=== PATIENT | female | born 1955 | race African-American/Black ===

== ENCOUNTER 2017-07-09 16:27 | Emergency (ER) | payer OTHER ==
[2017-07-09 16:43] VITALS: TEMP 98.5; BMI 35.5
--- NOTE | 2017-07-09 16:45 | PDOC ---
Rapid Medical Evaluation Time Seen by Provider: 07/09/17 16:40 Medical Evaluation: 07/09/17 16:40 I have performed a brief in-person evaluation of this patient. The patient presents with a chief complaint of: chest discomfort since yesterday with palpitations and weakness in lower leg. Denies dizziness. Pertinent physical exam findings: NAD lungs clear bilaterally heart [id number] I have ordered the following: ekg, labs ordered The patient will proceed to the ED for further evaluation. Discharge Disposition - Referrals Referrals: Chao Anthony MD [Primary Care Provider] - - Patient Instructions - Post Discharge Activity
[2017-07-09 17:14] LABS: BASO % 0.9 % (0-2.0); EOS % 3.7 % (0-4.5); HEMATOCRIT 43.2 % (32.4-45.2); HEMOGLOBIN 14.3 GM/dL (10.7-15.3); LYMPH % 54.3 % (8-40); MCH 28.3 pg (25.7-33.7); MEAN CELL VOLUME 85.9 fl (80-96); MEAN PLT VOLUME 10.2 fl (7.5-11.1); MONO % 7.1 % (3.8-10.2); PLATELET COUNT 302 K/MM3 (134-434); RBC 5.03 M/mm3 (3.60-5.2); RDW 14.3 % (11.6-15.6); WHITE BLOOD COUNT 11.5 K/mm3 (4.0-10.0)
[2017-07-09 17:19] LABS: INR 1.07 (0.82-1.09); PROTHROMBIN TIME (PATIENT) 12.1 SEC (9.7-13.0)
[2017-07-09 17:45] LABS: ALBUMIN 3.8 g/dl (3.4-5.0); ANION GAP 9 (8-16); BILIRUBIN,TOTAL 0.8 mg/dL (0.2-1.0); BLOOD UREA NITROGEN 10 mg/dL (7-18); CALCIUM 8.8 mg/dL (8.5-10.1); CHLORIDE 101 mmol/L (98-107); CO2 30 mmol/L (21-32); CREATININE 1.1 mg/dL (0.55-1.02); GLUCOSE,RANDOM 95 mg/dL (74-106); SGOT/AST 23 U/L (15-37); SGPT/ALT 52 U/L (12-78); SODIUM 140 mmol/L (136-145); TOT PROT 7.8 g/dl (6.4-8.2)
[2017-07-09 17:48] LABS: ALK PHOS 57 U/L (45-117)
[2017-07-09 17:49] LABS: POTASSIUM 2.9 mmol/L (3.5-5.1)
[2017-07-09] MEDS ORDERED: POTASSIUM CHLORIDE TABS 20 MEQ TABLET.ER (FP) PO ONE ×3 (17:51→18:04)
[2017-07-09] MEDS ORDERED: KCL 10 MEQ IVPB 10 MEQ/100 ML INFUS.BAG IVPB ONE (17:51)
[2017-07-09] MEDS ORDERED: SODIUM CHLORIDE 0.9% 1000 ML INFUS.BAG IV ONE (17:55)
[2017-07-09] MEDS ORDERED: KCL 10 MEQ IVPB 10 MEQ/100 ML INFUS.BAG IVPB SCH (18:00)
--- NOTE | 2017-07-09 18:03 | PDOC ---
History of Present Illness - General History Source: Patient Exam Limitations: No Limitations - History of Present Illness Initial Comments: 07/09/17 18:46 The patient is a 62 year old female with a significant past medical history of hypertension who presents to the emergency department for evaluation of palpitations. The patient reports episodes of palpitations since Saturday. The patient reports walking a few yards from her home and felt her heart palpitating with associated leg soreness on Saturday. She reports associated symptoms of dyspnea on exertion, chest discomfort, and body soreness. She states "my soreness feels like I have been to the gym a lot". Of note, the patient is currently taking nifedipine and hydrochlorothiazide. The patient denies abdominal pain, changes in vision, headache, and dizziness. Denies fevers, chills, nausea, vomiting, diarrhea, and constipation. Denies dysuria, frequency, urgency, and hematuria. Allergies: NKA Social history: Former smoker. No reported alcohol or drug use. PCP: Dr. Anthony ([phone]) <Evelio Marshall - Last Filed: 07/09/17 18:47> <Nawaf De La Rosa - Last Filed: 07/09/17 19:48> - General Chief Complaint: Palpitations Stated Complaint: HEART PALPITATIONS Time Seen by Provider: 07/09/17 16:40 Past History <Evelio Marshall - Last Filed: 07/09/17 18:47> - Suicide/Smoking/Psychosocial Hx Smoking History: Former smoker Have you smoked in the past 12 months: No Information on smoking cessation initiated: No <Nawaf De La Rosa - Last Filed: 07/09/17 19:48> - Past Medical History Allergies/Adverse Reactions: Allergies Allergy/AdvReac Type Severity Reaction Status Date / Time No Known Allergies Allergy Verified 07/09/17 16:41 Home Medications: Ambulatory Orders Unobtainable [Unobtainable] 07/09/17 Review of Systems - Review of Systems Able to Perform ROS?: Yes Comments:: A complete review of 10 out of 10 review of systems is taken and is negative apart from what is previously mentioned below and in the HPI. <Evelio Marshall - Last Filed: 07/09/17 18:47> *Physical Exam - Vital Signs Last Vital Signs Temp Pulse Resp BP Pulse Ox 98.5 F 89 15 118/86 99 07/09/17 16:41 07/09/17 16:41 07/09/17 16:41 07/09/17 16:41 07/09/17 16:41 - Physical Exam Comments: Vitals: Triage Vital signs reviewed General Appearance: no acute distress, well nourished well developed, Head: Atraumatic, normocephalic Eyes: Pupils equal reactive round, extraocular movement intact Nose: Nares patent bilaterally Neck: Supple;No Nuchal rigidity Chest Wall: Nontender Cardiac: Regular rate and rhythm, no murmurs, no rubs, no gallops, Lungs: Clear to auscultation bilateral, good air movement bilaterally, Abdomen: Soft, nondistended, normal bowel sounds, nontender to palpation Rectal: Exam deferred Extremities: Full range of motion to all extremities, no cyanosis, clubbing, or edema Skin: Warm and dry, no rashes or lesions, no petechiae Psych: normal mood, normal affect <Evelio Marshall - Last Filed: 07/09/17 18:47> - Vital Signs Last Vital Signs Temp Pulse Resp BP Pulse Ox 98.5 F 89 15 118/86 99 07/09/17 16:41 07/09/17 16:41 07/09/17 16:41 07/09/17 16:41 07/09/17 16:41 <Nawaf De La Rosa - Last Filed: 07/09/17 19:48> Heart Score/ECG Review - ECG Impressions Comment:: 07/09/17 18:40 EKG performed at 1640.Normal sinus rhythm no ST elevations or T-wave inversions <Nawaf De La Rosa - Last Filed: 07/09/17 19:48> ED Treatment Course - LABORATORY CBC & Chemistry Diagram: 07/09/17 16:51 07/09/17 16:51 - ADDITIONAL ORDERS Additional order review: Laboratory Results 07/09/17 07/09/17 16:51 16:51 PT with INR 12.10 INR 1.07 PTT (Actin FS) 28.0 Sodium 140 Potassium 2.9 L* Chloride 101 Carbon Dioxide 30 Anion Gap 9 BUN 10 Creatinine 1.1 H Creat Clearance w eGFR 50.50 Random Glucose 95 Calcium 8.8 Total Bilirubin 0.8 AST 23 ALT 52 Alkaline Phosphatase 57 Troponin I 0.03 Total Protein 7.8 Albumin 3.8 07/09/17 16:51 RBC 5.03 MCV 85.9 MCHC 33.0 RDW 14.3 MPV 10.2 Neutrophils % 34.0 L Lymphocytes % 54.3 H Monocytes % 7.1 Eosinophils % 3.7 Basophils % 0.9 - Medications Given in the ED: ED Medications Discontinued Medications Generic Name Dose Route Start Last Admin Trade Name Shivani PRN Reason Stop Dose Admin Potassium Chloride 80 meq 07/09/17 17:55 07/09/17 18:04 K-Dur - PO 07/09/17 17:56 80 meq ONCE ONE Administration Sodium Chloride 1,000 ml 07/09/17 17:55 07/09/17 18:04 Normal Saline - IV 07/09/17 17:56 1,000 ml ONCE ONE Administration <Evelio Marshall - Last Filed: 07/09/17 18:47> - LABORATORY CBC & Chemistry Diagram: 07/09/17 16:51 07/09/17 16:51 - ADDITIONAL ORDERS Additional order review: Laboratory Results 07/09/17 07/09/17 16:51 16:51 PT with INR 12.10 INR 1.07 PTT (Actin FS) 28.0 Sodium 140 Potassium 2.9 L* Chloride 101 Carbon Dioxide 30 Anion Gap 9 BUN 10 Creatinine 1.1 H Creat Clearance w eGFR 50.50 Random Glucose 95 Calcium 8.8 Total Bilirubin 0.8 AST 23 ALT 52 Alkaline Phosphatase 57 Troponin I 0.03 Total Protein 7.8 Albumin 3.8 07/09/17 16:51 RBC 5.03 MCV 85.9 MCHC 33.0 RDW 14.3 MPV 10.2 Neutrophils % 34.0 L Lymphocytes % 54.3 H Monocytes % 7.1 Eosinophils % 3.7 Basophils % 0.9 <Nawaf De La Rosa - Last Filed: 07/09/17 19:48> Medical Decision Making - Medical Decision Making The patient is a 62 year old female with a significant past medical history of hypertension who presents to the emergency department for evaluation of palpitations. Plan: Cpk Magnesium Potassium ECG <Evelio Marshall - Last Filed: 07/09/17 18:47> - Medical Decision Making 07/09/17 18:38 62 years old presents to the ED with muscle cramps since Saturday. Labs notable for hypokalemia. We will check magnesium level CPK hydrate EKG. Patient ordered for 80 any Q by mouth potassium and [address] on short stay observation we'll repeat potassium level after repletion and dispel at that point. Dr. Hamilton to follow-up results and Dispo 07/09/17 19:48 <Nawaf De La Rosa - Last Filed: 07/09/17 19:48> *DC/Admit/Observation/Transfer - Attestations Scribe Attestion: Documentation prepared by Evelio Marshall, acting as site medical director for Nawaf De La Rosa MD. <Evelio Marshall - Last Filed: 07/09/17 18:47> - Discharge Dispostion Decision to Admit order: Yes <Nawaf De La Rosa - Last Filed: 07/09/17 19:48> Diagnosis at time of Disposition: Hypokalemia
--- NOTE | 2017-07-09 19:14 | PN ---
Teaching Attending Note Name of Resident: Baldemar To ATTENDING PHYSICIAN STATEMENT I saw and evaluated the patient. I reviewed the resident's note and discussed the case with the resident. I agree with the resident's findings and plan as documented. SUBJECTIVE: OBJECTIVE: ASSESSMENT AND PLAN:
[2017-07-10 01:02] VITALS: BP 129/98; PULSE 76
--- NOTE | 2017-07-10 01:39 | PDOC ---
*Physical Exam - Vital Signs Last Vital Signs Temp Pulse Resp BP Pulse Ox 98.5 F 76 17 129/98 99 07/09/17 22:15 07/10/17 01:01 07/10/17 01:01 07/10/17 01:01 07/10/17 01:01 ED Treatment Course - LABORATORY CBC & Chemistry Diagram: 07/09/17 16:51 07/10/17 00:35 - ADDITIONAL ORDERS Additional order review: Laboratory Results 07/09/17 07/09/17 16:51 16:51 PT with INR 12.10 INR 1.07 PTT (Actin FS) 28.0 Sodium 140 Potassium 2.9 L* Chloride 101 Carbon Dioxide 30 Anion Gap 9 BUN 10 Creatinine 1.1 H Creat Clearance w eGFR 50.50 Random Glucose 95 Calcium 8.8 Total Bilirubin 0.8 AST 23 ALT 52 Alkaline Phosphatase 57 Troponin I 0.03 Total Protein 7.8 Albumin 3.8 07/09/17 16:51 RBC 5.03 MCV 85.9 MCHC 33.0 RDW 14.3 MPV 10.2 Neutrophils % 34.0 L Lymphocytes % 54.3 H Monocytes % 7.1 Eosinophils % 3.7 Basophils % 0.9 - Medications Given in the ED: ED Medications Discontinued Medications Generic Name Dose Route Start Last Admin Trade Name Freq PRN Reason Stop Dose Admin Potassium Chloride 10 meq in 100 mls @ 100 mls/hr 07/09/17 18:00 07/09/17 18: 05 Potassium Chloride 10 Meq Premix Ivpb - IVPB 07/09/17 18:59 100 mls/hr Q60M BRIAN Administration Potassium Chloride 80 meq 07/09/17 17:55 07/09/17 18:04 K-Dur - PO 07/09/17 17:56 80 meq ONCE ONE Administration Sodium Chloride 1,000 ml 07/09/17 17:55 07/09/17 18:04 Normal Saline - IV 07/09/17 17:56 1,000 ml ONCE ONE Administration Medical Decision Making - Medical Decision Making 07/10/17 01:36 Pt potassium is now 3.7. Pt feels well. NO complaints at this time. Will discharge. *DC/Admit/Observation/Transfer Diagnosis at time of Disposition: Hypokalemia - Discharge Dispostion Condition at time of disposition: Improved - Referrals - Patient Instructions - Post Discharge Activity
--- NOTE | 2017-07-10 11:49 | EKG ---
Test Reason : Blood Pressure : / mmHG Vent. Rate : 084 BPM Atrial Rate : 084 BPM P-R Int : 136 ms QRS Dur : 088 ms QT Int : 402 ms P-R-T Axes : 043 -04 024 degrees QTc Int : 475 ms NORMAL SINUS RHYTHM POSSIBLE LEFT ATRIAL ENLARGEMENT NONSPECIFIC ST ABNORMALITY ABNORMAL ECG WHEN COMPARED WITH ECG OF 21-JUN-2010 15:44, NO SIGNIFICANT CHANGE WAS FOUND Confirmed by UMER FITZGERALD, CINDY ([id number]) on 07/10/2017 11:49:11 AM Referred By: Confirmed By:CINDY OWUSU MD
== END 2017-07-10 02:53 | disposition home or self-care (01) ==
LOC: JER 16:27 → JERBED 18:40 → UNDOADMOB 18:40 → JER 07-10 02:53
PROC: 3E0337Z Introduction of Electrolytic and Water Balance Substance into Peripheral Vein, Percutaneous Approach (ICD-10-PCS; principal; 2017-07-09)
DX: E87.6 Hypokalemia (principal); I10 Essential (primary) hypertension
CPT/HCPCS: 36415; 80053; 84132; 84484; 85025; 85610; 85730; 93005; 93010; 96365; 99285-25; J7030